=== PATIENT | male | born 2000 | race Caucasian/White ===

== ENCOUNTER 2022-01-18 13:45 | Emergency (ER) | payer MEDICAID ==
[~2022-01-18] VITALS: Ht 185.4 cm; Wt 136.1 kg
[2022-01-18 13:53] VITALS: BP 178/96
== END 2022-01-18 14:54 | disposition home or self-care (01) ==
LOC: EDH 13:45
DX: I10 Essential (primary) hypertension (principal); F84.0 Autistic disorder

== ENCOUNTER 2023-08-26 20:24 | Emergency (ER) | payer MEDICAID ==
[~2023-08-26] VITALS: Ht 185.4 cm; Wt 114.4 kg
[2023-08-26] MEDS ORDERED: MAG/ALUM/SIMETH 30 ML UDCUP PO ONE (23:30)
[2023-08-26] MEDS ORDERED: LIDOCAINE HCL 2% VISCOUS 15 ML UDCUP PO ONE (23:30)
[2023-08-26 23:36] LABS: HEMATOCRIT 49.7 % (42-54); MEAN CORPUSCULAR HEMOGLOBIN 30.4 pg (27.0-33.0); MEAN CORPUSCULAR HGB CONC 33.4 g/dL (32.0-36.0); PLATELET COUNT (AUTO) 320 K/uL (130-400); RED BLOOD CELL COUNT(AUTO) 5.46 MIL/uL (4.50-6.20); RED CELL DISTRIBUTION WIDTH 12.2 % (11.0-15.5); WHITE BLOOD COUNT (AUTO) 14.8 K/uL (4.8-10.8)
[2023-08-26 23:47] LABS: POTASSIUM 4.1 mmol/L (3.5-5.1)
[2023-08-26 23:48] LABS: BASOPHILS # (AUTO) 0.06 K/uL (0.00-0.20); BASOPHILS % (AUTO) 0.4 % (0.0-5.0); EOSINOPHILS # (AUTO) 0.04 K/uL (0.00-0.70); EOSINOPHILS % (AUTO) 0.3 % (0.0-8.0); IMMATURE GRANULOCYTE ABSOLUTE 0.06 K/uL (0-1); INR 0.96 (0.85-1.15); LYMPHOCYTES # (AUTO) 1.7 K/uL (1.0-4.8); LYMPHOCYTES % (AUTO) 11.6 % (21.0-51.0); MONOCYTES # (AUTO) 0.9 K/uL (0.1-1.0); MONOCYTES % (AUTO) 5.8 % (3.0-13.0); NEUTROPHILS # (AUTO) 11.8 K/uL (1.8-7.7); NEUTROPHILS % (AUTO) 81.5 % (40.0-77.0); PROTHROMBIN TIME 11.2 SEC (9.6-11.6)
[2023-08-26 23:49] LABS: PARTIAL THROMBOPLASTIN TIME 29.2 SEC (26.3-35.5)
[2023-08-26 23:52] LABS: ALBUMIN 4.1 g/dL (3.5-5.0); BILIRUBIN,TOTAL 0.8 mg/dL (0.2-1.0); TOTAL PROTEIN, SERUM 8.3 g/dL (6.0-8.3)
[2023-08-27 00:20] LABS: B-TYPE NATRIURETIC PEPTIDE < 5 pg/mL (0-100)
[2023-08-27 00:56] VITALS: BP 118/64; PULSE 78; RESP 18; O2SAT 98
[2023-08-27] MEDS ORDERED: OMEP40CA21 PO (00:56)
[2023-08-27] MEDS ORDERED: IBUP-1493 PO (00:56)
[2023-08-27 00:57] LABS: ERYTHROCYTE SEDIMENTATION RATE 7 MM/HR (0-15)
== END 2023-08-27 01:14 | disposition home or self-care (01) ==
LOC: EDH 20:24
DX: B17.9 Acute viral hepatitis, unspecified (principal); I30.9 Acute pericarditis, unspecified; R07.89 Other chest pain; F84.0 Autistic disorder
CPT/HCPCS: 36415; 71045; 80053; 83880; 84484; 85025; 85378; 85610; 85651; 85730; 93005

== ENCOUNTER 2024-01-15 11:44 | Emergency (ER) | payer MEDICAID ==
[~2024-01-15] VITALS: Ht 188 cm; Wt 106.3 kg
[~2024-01-15 11:44] MED LIST: IBUP-1493 PO; OMEP40CA21 PO
[2024-01-15] MEDS: DICYCLOMINE HCL 10 MG/5 ML ML PO ONE (12:19)
[2024-01-15] MEDS: 0.9%NACL 1000ML 1,000 ML IV ONE (12:19)
[2024-01-15] MEDS: FAMOTIDINE 20MG VIAL IV ONE (12:19)
[2024-01-15] MEDS: METOCLOPRAMIDE 10 MG/2 ML VIAL IVP ONE (12:19)
[2024-01-15] MEDS: LIDOCAINE HCL 2% VISCOUS 15 ML UDCUP PO ONE (12:19)
[2024-01-15] MEDS: MAG/ALUM/SIMETH 30 ML UDCUP PO ONE (12:19)
[2024-01-15] MEDS: MORPHINE 2 MG SYG IVP ONE (12:20)
[2024-01-15 12:29] LABS: BASOPHILS # (AUTO) 0.06 K/uL (0.00-0.20); BASOPHILS % (AUTO) 0.7 % (0.0-5.0); EOSINOPHILS % (AUTO) 3.4 % (0.0-8.0); HEMATOCRIT 45.8 % (42-54); IMMATURE GRANULOCYTE ABSOLUTE 0.05 K/uL (0-1); LYMPHOCYTES % (AUTO) 23.2 % (21.0-51.0); MEAN CORPUSCULAR HEMOGLOBIN 30.3 pg (27.0-33.0); MEAN CORPUSCULAR HGB CONC 34.3 g/dL (32.0-36.0); MEAN CORPUSCULAR VOLUME 88.4 fL (80-100); MONOCYTES # (AUTO) 0.8 K/uL (0.1-1.0); MONOCYTES % (AUTO) 9.4 % (3.0-13.0); NEUTROPHILS # (AUTO) 5.5 K/uL (1.8-7.7); NEUTROPHILS % (AUTO) 62.7 % (40.0-77.0); PLATELET COUNT (AUTO) 334 K/uL (130-400); RED BLOOD CELL COUNT(AUTO) 5.18 MIL/uL (4.50-6.20); RED CELL DISTRIBUTION WIDTH 12.4 % (11.0-15.5); WHITE BLOOD COUNT (AUTO) 8.7 K/uL (4.8-10.8)
[2024-01-15 12:38] LABS: CREATININE 0.9 mg/dL (0.5-1.3); POTASSIUM 4.5 mmol/L (3.5-5.1)
[2024-01-15 12:42] LABS: BILIRUBIN,TOTAL 2.1 mg/dL (0.2-1.0); TOTAL PROTEIN, SERUM 7.9 g/dL (6.0-8.3)
[2024-01-15 13:45] LABS: APPEARANCE,URINE CLEAR (CLEAR); BILIRUBIN,URINE NEGATIVE (NEGATIVE); COLOR,URINE YELLOW (YELLOW); GLUCOSE, URINE (UA) NEGATIVE (NEGATIVE); KETONES,URINE NEGATIVE (NEGATIVE); LEUKOCYTE ESTERASE ,URINE NEGATIVE Leu/uL (NEGATIVE); NITRATE,URINE NEGATIVE (NEGATIVE); OCCULT BLOOD,URINE NEGATIVE (NEGATIVE); PH,URINE 6.5 (5.0-8.0); PROTEIN,URINE NEGATIVE (NEGATIVE); UROBILINOGEN,URINE 0.2 mg/dL (0.2-1.0)
[2024-01-15 14:12] LABS: ADD UA MICROSCOPIC NO
[2024-01-15 15:10] VITALS: BP 110/68; PULSE 64; RESP 17; O2SAT 98
== END 2024-01-15 15:22 | disposition home or self-care (01) ==
LOC: EDH 11:44
DX: K29.70 Gastritis, unspecified, without bleeding (principal); K76.0 Fatty (change of) liver, not elsewhere classified; F84.0 Autistic disorder; Z79.899 Other long term (current) drug therapy; Z98.890 Other specified postprocedural states
CPT/HCPCS: 99284; 96374; 96375; 96361; 82150; 84484; 80053; 83690; 85025; 81003; 36415; 93005; J2270; J7030; J2765; S0028; J3490

== ENCOUNTER 2024-02-06 10:17 | Emergency (ER) | payer MEDICAID ==
[~2024-02-06] VITALS: Ht 185.4 cm; Wt 108.9 kg
[2024-02-06 11:02] LABS: BASOPHILS # (AUTO) 0.04 K/uL (0.00-0.20); BASOPHILS % (AUTO) 0.4 % (0.0-5.0); EOSINOPHILS # (AUTO) 0.34 K/uL (0.00-0.70); HEMATOCRIT 46.7 % (42-54); IMMATURE GRANULOCYTE ABSOLUTE 0.04 K/uL (0-1); LYMPHOCYTES # (AUTO) 3.2 K/uL (1.0-4.8); LYMPHOCYTES % (AUTO) 28.6 % (21.0-51.0); MEAN CORPUSCULAR HEMOGLOBIN 30.3 pg (27.0-33.0); MEAN CORPUSCULAR HGB CONC 33.6 g/dL (32.0-36.0); MEAN CORPUSCULAR VOLUME 90.2 fL (80-100); MONOCYTES # (AUTO) 0.8 K/uL (0.1-1.0); MONOCYTES % (AUTO) 7.5 % (3.0-13.0); NEUTROPHILS # (AUTO) 6.7 K/uL (1.8-7.7); NEUTROPHILS % (AUTO) 60.1 % (40.0-77.0); PLATELET COUNT (AUTO) 365 K/uL (130-400); RED BLOOD CELL COUNT(AUTO) 5.18 MIL/uL (4.50-6.20); RED CELL DISTRIBUTION WIDTH 12.2 % (11.0-15.5); WHITE BLOOD COUNT (AUTO) 11.2 K/uL (4.8-10.8)
[2024-02-06 11:11] LABS: APPEARANCE,URINE CLEAR (CLEAR); BILIRUBIN,URINE NEGATIVE (NEGATIVE); COLOR,URINE YELLOW (YELLOW); GLUCOSE, URINE (UA) NEGATIVE (NEGATIVE); KETONES,URINE NEGATIVE (NEGATIVE); LEUKOCYTE ESTERASE ,URINE NEGATIVE Leu/uL (NEGATIVE); NITRATE,URINE NEGATIVE (NEGATIVE); OCCULT BLOOD,URINE NEGATIVE (NEGATIVE); PH,URINE 6.5 (5.0-8.0); PROTEIN,URINE 20 mg/dL (NEGATIVE)
[2024-02-06 11:12] LABS: ADD UA MICROSCOPIC YES
[2024-02-06 11:17] LABS: BILIRUBIN,TOTAL 0.6 mg/dL (0.2-1.0); TOTAL PROTEIN, SERUM 8.3 g/dL (6.0-8.3)
[2024-02-06 11:18] LABS: BACTERIA,URINE RARE /HPF (None Seen); MUCUS,URINE FEW LPF (None Seen); SQUAMOUS EPITHELIAL CELL,UR RARE /HPF (0-2); WBC,URINE 0-1 /HPF (0-1)
[2024-02-06] MEDS: 0.9%NACL 1000ML 1,000 ML IV ONE (12:24)
[2024-02-06 13:08] VITALS: BP 115/47; PULSE 65; RESP 17; O2SAT 99
== END 2024-02-06 13:48 | disposition home or self-care (01) ==
LOC: EDH 10:17
DX: I95.9 Hypotension, unspecified (principal); F84.0 Autistic disorder; I21.9 Acute myocardial infarction, unspecified; Z79.899 Other long term (current) drug therapy; Z87.19 Personal history of other diseases of the digestive system
CPT/HCPCS: 99284; 96360; 84484 ×2; 80053; 85025; 81001; 36415; 93005 ×3; J7030; 96365

== ENCOUNTER 2024-06-23 04:23 | Inpatient (IN) | payer MEDICAID ==
[~2024-06-23] VITALS: Ht 188 cm; Wt 103.2 kg
[2024-06-23] MEDS: FAMOTIDINE 20MG VIAL IV ONE (04:43)
[2024-06-23] MEDS: ONDANSETRON 4MG INJ IVP ONE (04:43)
[2024-06-23 05:06] LABS: BASOPHILS # (AUTO) 0.05 K/uL (0.00-0.20); BASOPHILS % (AUTO) 0.3 % (0.0-5.0); EOSINOPHILS # (AUTO) 0.03 K/uL (0.00-0.70); EOSINOPHILS % (AUTO) 0.2 % (0.0-8.0); IMMATURE GRANULOCYTE ABSOLUTE 0.07 K/uL (0-1); LYMPHOCYTES # (AUTO) 1.3 K/uL (1.0-4.8); LYMPHOCYTES % (AUTO) 7.8 % (21.0-51.0); MEAN CORPUSCULAR HGB CONC 34.1 g/dL (32.0-36.0); MEAN CORPUSCULAR VOLUME 91.1 fL (80-100); MONOCYTES # (AUTO) 0.8 K/uL (0.1-1.0); MONOCYTES % (AUTO) 4.8 % (3.0-13.0); NEUTROPHILS % (AUTO) 86.5 % (40.0-77.0); PLATELET COUNT (AUTO) 314 K/uL (130-400); RED BLOOD CELL COUNT(AUTO) 5.38 MIL/uL (4.50-6.20); RED CELL DISTRIBUTION WIDTH 11.9 % (11.0-15.5); WHITE BLOOD COUNT (AUTO) 16.2 K/uL (4.8-10.8)
[2024-06-23 05:11] LABS: POTASSIUM 4.5 mmol/L (3.5-5.1)
[2024-06-23 05:16] LABS: ALBUMIN 4.5 g/dL (3.5-5.0); BILIRUBIN,TOTAL 2.3 mg/dL (0.2-1.0); TOTAL PROTEIN, SERUM 8.4 g/dL (6.0-8.3)
[2024-06-23 07:52] LABS: APPEARANCE,URINE CLEAR (CLEAR); BILIRUBIN,URINE 0.5 mg/dL (NEGATIVE); COLOR,URINE YELLOW (YELLOW); GLUCOSE, URINE (UA) NEGATIVE (NEGATIVE); KETONES,URINE 40 mg/dL (NEGATIVE); LEUKOCYTE ESTERASE ,URINE NEGATIVE Leu/uL (NEGATIVE); NITRATE,URINE NEGATIVE (NEGATIVE); OCCULT BLOOD,URINE NEGATIVE (NEGATIVE); PH,URINE 6.5 (5.0-8.0); PROTEIN,URINE 30 mg/dL (NEGATIVE); UROBILINOGEN,URINE 6 mg/dL (0.2-1.0)
[2024-06-23] MEDS ORDERED: KETOROLAC 30MG VIAL (30MG/ML) IVP ONE (08:00)
[2024-06-23 08:26] LABS: ADD UA MICROSCOPIC YES
[2024-06-23 08:28] LABS: BACTERIA,URINE RARE /HPF (None Seen); MUCUS,URINE FEW LPF (None Seen); SQUAMOUS EPITHELIAL CELL,UR RARE /HPF (0-2)
[2024-06-23] MEDS ORDERED: ONDANSETRON 4MG INJ IV PRN (10:00)
[2024-06-23] MEDS ORDERED: KETOROLAC 30MG VIAL (30MG/ML) IM PRN (10:00)
[2024-06-23] MEDS ORDERED: acetaMINOPHEN 325 MG TAB PO PRN ×2 (10:00)
[2024-06-23] MEDS: 0.9%NACL 1000ML 1,000 ML IV SCH (10:38)
[2024-06-23] MEDS: ONDANSETRON 4MG INJ IV ONE (10:38)
[2024-06-23] MEDS: FENTanyl CITRate PF 50 MCG/1 ML 2ML VIAL IVP ONE (10:39)
[2024-06-23] MEDS ORDERED: [UNRECOGNIZED DRUG - CODE] PO ×2 (10:50→10:54)
[2024-06-23] MEDS ORDERED: LISI10TA24 PO (10:50)
[2024-06-23] MEDS ORDERED: CLON1PAT13 TD (10:50)
[2024-06-23] MEDS ORDERED: CLON1PAT12 TD (10:50)
[2024-06-23 12:00] VITALS: BP 166/79; PULSE 50; RESP 18; O2SAT 100
[2024-06-23] MEDS: ZOSYN 3.375GM+NS 50ML 50 ML IV SCH (13:02)
[2024-06-23] MEDS ORDERED: CLON0.2T PO (13:15)
[2024-06-23] MEDS ORDERED: CLON0.1T PO (13:15)
[2024-06-23] MEDS ORDERED: FAMOTIDINE 20MG TAB PO PRN (13:30)
[2024-06-23] MEDS: LISINOPRIL 10 MG TABLET PO ONE (13:33)
[2024-06-23] MEDS: cloNIDine HCL 0.1 MG TABLET PO ONE (13:34)
[2024-06-23 16:00] VITALS: BP 119/57; PULSE 44; RESP 18
[2024-06-23 20:00] VITALS: BP 122/72; PULSE 51; RESP 20
[2024-06-23] MEDS: LISINOPRIL 10 MG TABLET PO SCH (20:38)
[2024-06-23] MEDS: cloNIDine HCL 0.2 MG TABLET PO SCH (20:38)
[2024-06-23] MEDS: FAMOTIDINE 20MG VIAL IV SCH (20:39)
[2024-06-24] VITALS (10 sets, daily range): BP systolic 101–146; BP diastolic 49–78; PULSE 40–58; RESP 16–20; O2SAT 99–100
[2024-06-24 04:36] LABS: BASOPHILS # (AUTO) 0.05 K/uL (0.00-0.20); BASOPHILS % (AUTO) 0.7 % (0.0-5.0); EOSINOPHILS # (AUTO) 0.21 K/uL (0.00-0.70); EOSINOPHILS % (AUTO) 2.9 % (0.0-8.0); HEMATOCRIT 45.5 % (42-54); IMMATURE GRANULOCYTE ABSOLUTE 0.02 K/uL (0-1); LYMPHOCYTES # (AUTO) 2.2 K/uL (1.0-4.8); LYMPHOCYTES % (AUTO) 31.4 % (21.0-51.0); MEAN CORPUSCULAR HEMOGLOBIN 30.8 pg (27.0-33.0); MEAN CORPUSCULAR HGB CONC 32.5 g/dL (32.0-36.0); MEAN CORPUSCULAR VOLUME 94.6 fL (80-100); MONOCYTES # (AUTO) 0.7 K/uL (0.1-1.0); MONOCYTES % (AUTO) 9.8 % (3.0-13.0); NEUTROPHILS # (AUTO) 3.9 K/uL (1.8-7.7); NEUTROPHILS % (AUTO) 54.9 % (40.0-77.0); PLATELET COUNT (AUTO) 246 K/uL (130-400); RED BLOOD CELL COUNT(AUTO) 4.81 MIL/uL (4.50-6.20); RED CELL DISTRIBUTION WIDTH 12.4 % (11.0-15.5); WHITE BLOOD COUNT (AUTO) 7.1 K/uL (4.8-10.8)
[2024-06-24 04:49] LABS: ALBUMIN 3.7 g/dL (3.5-5.0); BILIRUBIN,TOTAL 1.9 mg/dL (0.2-1.0); CREATININE 1.1 mg/dL (0.5-1.3); POTASSIUM 4.4 mmol/L (3.5-5.1)
[2024-06-24] MEDS: ALPRAZolam 1 MG TAB PO ONE (08:16)
[2024-06-24] MEDS: cloNIDine HCL 0.1 MG TABLET PO SCH (08:22)
[2024-06-24] MEDS ORDERED: CLONIDINE 0.1 MG/24 HR TD SCH (09:00)
[2024-06-25] VITALS (21 sets, daily range): BP systolic 103–160; BP diastolic 32–94; PULSE 38–72; RESP 16–22; O2SAT 97–100
[2024-06-25] MEDS: INDOMETHACIN 100 MG SUPP.RECT RC ONE (06:30)
[2024-06-25 08:28] LABS: BASOPHILS # (AUTO) 0.06 K/uL (0.00-0.20); BASOPHILS % (AUTO) 0.8 % (0.0-5.0); EOSINOPHILS # (AUTO) 0.31 K/uL (0.00-0.70); EOSINOPHILS % (AUTO) 4.2 % (0.0-8.0); HEMATOCRIT 45.8 % (42-54); IMMATURE GRANULOCYTE ABSOLUTE 0.03 K/uL (0-1); LYMPHOCYTES # (AUTO) 2.1 K/uL (1.0-4.8); LYMPHOCYTES % (AUTO) 28.7 % (21.0-51.0); MEAN CORPUSCULAR HEMOGLOBIN 31.1 pg (27.0-33.0); MEAN CORPUSCULAR HGB CONC 33.2 g/dL (32.0-36.0); MEAN CORPUSCULAR VOLUME 93.9 fL (80-100); MONOCYTES # (AUTO) 0.6 K/uL (0.1-1.0); MONOCYTES % (AUTO) 8.3 % (3.0-13.0); NEUTROPHILS # (AUTO) 4.2 K/uL (1.8-7.7); NEUTROPHILS % (AUTO) 57.6 % (40.0-77.0); PLATELET COUNT (AUTO) 231 K/uL (130-400); RED BLOOD CELL COUNT(AUTO) 4.88 MIL/uL (4.50-6.20); RED CELL DISTRIBUTION WIDTH 12.2 % (11.0-15.5); WHITE BLOOD COUNT (AUTO) 7.4 K/uL (4.8-10.8)
[2024-06-25 08:44] LABS: ALBUMIN 3.7 g/dL (3.5-5.0); BILIRUBIN,TOTAL 1.4 mg/dL (0.2-1.0); CREATININE 1.1 mg/dL (0.5-1.3); POTASSIUM 4.1 mmol/L (3.5-5.1); TOTAL PROTEIN, SERUM 7.2 g/dL (6.0-8.3)
[2024-06-25] MEDS ORDERED: proPOFol 10 MG/ML 20ML VIAL IV ONE (13:40)
[2024-06-25] MEDS ORDERED: rocuRONium bROMide 10MG/1ML 5ML VL ONE (13:41)
[2024-06-25] MEDS ORDERED: PHENYLEPHRINE HCL 10 MG/ML 1ML VIAL IV ONE (13:41)
[2024-06-25] MEDS ORDERED: SUCCINYLCHOLINE CHLORIDE 20 MG/ML 10 ML VIAL ONE (13:41)
[2024-06-25] MEDS ORDERED: NEOSTIGMINE METHYLSULFATE 1MG/ML IV ONE (13:41)
[2024-06-25] MEDS ORDERED: GLYCOPYRROLATE 0.2 MG/ML 5 ML VIAL ONE (13:41)
[2024-06-25] MEDS ORDERED: FENTanyl CITRate PF 50 MCG/1 ML 2ML VIAL ONE (13:42)
[2024-06-25] MEDS ORDERED: MIDAZOLAM HCL 1 MG/ML 2ML VIAL ONE (13:43)
[2024-06-25] MEDS ORDERED: LIDOCAINE PF 100MG/5ML (2%) SYRINGE 5ML ONE (13:50)
[2024-06-25] MEDS ORDERED: IOHEXOL-350 50ML VIAL IV ONE (15:11)
[2024-06-26] VITALS (26 sets, daily range): BP systolic 115–161; BP diastolic 57–104; PULSE 47–66; RESP 15–20
[2024-06-26] MEDS: BUPIvacaine HCL/EPINEPHrine/PF 0.25% 10ML VIAL IJ ONE
[2024-06-26 06:39] LABS: BASOPHILS # (AUTO) 0.04 K/uL (0.00-0.20); BASOPHILS % (AUTO) 0.6 % (0.0-5.0); EOSINOPHILS # (AUTO) 0.25 K/uL (0.00-0.70); EOSINOPHILS % (AUTO) 3.5 % (0.0-8.0); HEMATOCRIT 42.9 % (42-54); IMMATURE GRANULOCYTE ABSOLUTE 0.03 K/uL (0-1); LYMPHOCYTES # (AUTO) 1.9 K/uL (1.0-4.8); LYMPHOCYTES % (AUTO) 26.5 % (21.0-51.0); MEAN CORPUSCULAR HEMOGLOBIN 31.3 pg (27.0-33.0); MEAN CORPUSCULAR VOLUME 92.1 fL (80-100); MONOCYTES # (AUTO) 0.7 K/uL (0.1-1.0); MONOCYTES % (AUTO) 9.5 % (3.0-13.0); NEUTROPHILS # (AUTO) 4.3 K/uL (1.8-7.7); NEUTROPHILS % (AUTO) 59.5 % (40.0-77.0); PLATELET COUNT (AUTO) 226 K/uL (130-400); RED BLOOD CELL COUNT(AUTO) 4.66 MIL/uL (4.50-6.20); RED CELL DISTRIBUTION WIDTH 11.9 % (11.0-15.5); WHITE BLOOD COUNT (AUTO) 7.2 K/uL (4.8-10.8)
[2024-06-26 06:53] LABS: ALBUMIN 3.5 g/dL (3.5-5.0); BILIRUBIN,TOTAL 1.2 mg/dL (0.2-1.0); MAGNESIUM 1.7 mg/dL (1.80-2.40); POTASSIUM 3.9 mmol/L (3.5-5.1); TOTAL PROTEIN, SERUM 6.9 g/dL (6.0-8.3)
[2024-06-26] MEDS: acetaMINOPHEN 1,000 MG/100 ML VIAL IV ONE (11:33)
[2024-06-26] MEDS: FAMOTIDINE 20MG VIAL IV ONE (11:33)
[2024-06-26] MEDS ORDERED: rocuRONium bROMide 10MG/1ML 5ML VL ONE (11:38)
[2024-06-26] MEDS ORDERED: proPOFol 10 MG/ML 20ML VIAL IV ONE (11:38)
[2024-06-26] MEDS ORDERED: FENTanyl CITRate PF 50 MCG/1 ML 2ML VIAL ONE ×2 (11:39→15:35)
[2024-06-26] MEDS: LACTATED RINGERS 1000ML 1,000 ML IV ONE ×2 (12:02)
[2024-06-26] MEDS ORDERED: MIDAZOLAM HCL 1 MG/ML 2ML VIAL ONE (12:10)
[2024-06-26] MEDS ORDERED: KETAMINE 50MG/ML SYRINGE 50 MG/ML DISP.SYRIN ONE (13:33)
[2024-06-26] MEDS ORDERED: ONDANSETRON 4MG INJ ONE (14:25)
[2024-06-26] MEDS ORDERED: dexaMETHasone SOD PHOSPHATE 10MG/ML 1ML VIAL ONE (14:25)
[2024-06-26] MEDS ORDERED: NEOSTIGMINE METHYLSULFATE 1MG/ML IV ONE (15:02)
[2024-06-26] MEDS ORDERED: GLYCOPYRROLATE 0.2 MG/ML 5 ML VIAL ONE (15:02)
[2024-06-26] MEDS ORDERED: KETOROLAC 30MG VIAL (30MG/ML) ONE (15:30)
[2024-06-26] MEDS: MORPHINE 2 MG SYG IV PRN (17:37)
[2024-06-26] MEDS: SIMETHICONE 80 MG TAB.CHEW PO SCH (17:42)
[2024-06-26] MEDS: traMADol HCL 50 MG TABLET PO PRN (23:52)
[2024-06-27] VITALS: BP 177/96; PULSE 57; RESP 20
[2024-06-27 04:00] VITALS: BP 129/71; PULSE 51; RESP 20
[2024-06-27 08:00] VITALS: BP 167/91; PULSE 54; RESP 18
[2024-06-27 08:15] VITALS: O2SAT 99
[2024-06-27 09:46] LABS: HEMATOCRIT 38.4 % (42-54); MEAN CORPUSCULAR HEMOGLOBIN 31.1 pg (27.0-33.0); MEAN CORPUSCULAR HGB CONC 34.4 g/dL (32.0-36.0); MEAN CORPUSCULAR VOLUME 90.6 fL (80-100); RED BLOOD CELL COUNT(AUTO) 4.24 MIL/uL (4.50-6.20); RED CELL DISTRIBUTION WIDTH 11.9 % (11.0-15.5); WHITE BLOOD COUNT (AUTO) 14.8 K/uL (4.8-10.8)
[2024-06-27 10:01] LABS: ALBUMIN 3.5 g/dL (3.5-5.0); BILIRUBIN,TOTAL 0.7 mg/dL (0.2-1.0); CREATININE 0.9 mg/dL (0.5-1.3); TOTAL PROTEIN, SERUM 6.9 g/dL (6.0-8.3)
[2024-06-27 12:00] VITALS: BP 138/84; PULSE 58; RESP 18
[2024-06-27] MEDS ORDERED: AMOX1TAB16 PO (13:48)
[2024-06-27 16:00] VITALS: BP 139/69; PULSE 61; RESP 18
== END 2024-06-27 15:35 | disposition home or self-care (01) | DRG 263 ==
LOC: EDH 04:23 → EDHIP 04:24 → UNDOADMIN 09:46 → EDHIP 11:27 → 3CH 11:27
PROVIDERS: ADMIT Hospitalist; ATTEND Hospitalist
PROC: 0F798ZZ Dilation of Common Bile Duct, Via Natural or Artificial Opening Endoscopic (ICD-10-PCS; 2024-06-25)
PROC: 0FT44ZZ Resection of Gallbladder, Percutaneous Endoscopic Approach (ICD-10-PCS; principal; 2024-06-26 12:35)
DX: K80.62 Calculus of gallbladder and bile duct with acute cholecystitis without obstruction (principal); F84.0 Autistic disorder; I16.0 Hypertensive urgency; R74.01 Elevation of levels of liver transaminase levels; I10 Essential (primary) hypertension; K21.9 Gastro-esophageal reflux disease without esophagitis; Z82.49 Family history of ischemic heart disease and other diseases of the circulatory system
CPT/HCPCS: 36415; 43262; 74176; 74181; 74328; 74330; 76705; 80053; 81001; 82248; 83690; 83735; 85025; 85027; 85651; 88304; A4606; C1769; C1773; G0378; J0330; J1100; J1885; J2001; J2250; J2270; J2371; J2405; J2543; J2704; J2710; J3010; J3490; J7030; J7120; Q9967; A4215; A4216; A4221; A4222; A4223; A4600; A4649; A4663; A4930; A7002; G0168; S8037

== ENCOUNTER 2025-01-20 10:21 | Emergency (ER) | payer MEDICAID ==
[~2025-01-20] VITALS: Ht 185.4 cm; Wt 100.7 kg
[~2025-01-20 10:21] MED LIST changes: +AMOX1TAB16 PO; +CLON0.1T PO; +CLON0.2T PO; -IBUP-1493 PO; +LISI10TA24 PO; -OMEP40CA21 PO; +[UNRECOGNIZED DRUG - CODE] PO
--- NOTE | 2025-01-20 10:47 | ERN ---
General Chief Complaint: Foreign Body Stated Complaint: LEFT FOOT, POSSIBLE GLASS Time Seen by MD: 10:22 History of Present Illness Initial Comments 24M, hx autism, presents for left foot pain. A few days ago he stepped on something ceramic according to the family. He has been having pain since. He was autism, he was able to communicate. He has been reporting pain. No systemic illness. Allergies: Coded Allergies: No Known Drug Allergies (Unverified Allergy, Unknown, 01/18/22) Home Meds Active Scripts Amoxicillin/Potassium Clav (Amox Tr-K Clv 875-125 mg Tab) 875 Mg-125 Mg Tablet, 1 EACH PO BID for 7 Days, #14 TAB Prov:SEEMA PELAYO 06/27/24 Reported Medications Clonidine HCl (Clonidine HCl) 0.2 Mg Tablet, 0.2 MG PO HS, TAB 06/23/24 Clonidine HCl (Clonidine HCl) 0.1 Mg Tablet, 0.1 MG PO DAILY, TAB 06/23/24 Famotidine (Zantac-360 (Famotidine)) 20 Mg Tablet, 20 MG PO DAILY PRN for ABDOMINAL PAIN, TAB 06/23/24 Lisinopril (Lisinopril) 10 Mg Tablet, 10 MG PO BID, TAB 06/23/24 Past Medical History Past Medical History: Hypertension, Other Medical History Other: AUTISM, GASTRITIS , PREMATURE , INSOMNIA Past Surgical History: Cholecystectomy Family History Family History: HTN Social History Social History: Lives with family ROS Dictation CONSTITUTIONAL: No chills, no fever, no weakness, no diaphoresis, no malaise. HEAD/FACE: No signs of trauma. EENT: No eye pain, no blurred vision, no tearing, no double vision, no ear pain, no ear discharge, no nose pain, no nasal congestion, no throat pain, no throat swelling, no mouth pain. RESPIRATORY: No cough, no orthopnea, no SOB, no stridor, no wheezing. CARDIOVASCULAR: No chest pain, no edema, no palpitations, no syncope. GASTROINTESTINAL/ABDOMINAL: No abdominal pain, no constipation, no diarrhea, no nausea, no vomiting. GENITOURINARY: No abnormal discharge, no dysuria, no frequent urination, no h ematuria. No complaints of pain in the genitals. MUSCULOSKELETAL: Left foot pain INTEGUMENTARY: No change in color, no change in hair/nails, no dryness, no lesion, no lumps, no rash. NEUROLOGICAL/PSYCH: No anxiety, not depressed, no emotional problem, no headache, no numbness, no pre-existing deficit, no history of seizures, no tremors, no weakness. HEMATOLOGIC/LYMPHATIC: Not anemic, no history of blood clots, no apparent bleeding, no bruising, glands not swollen. All Systems Negative, Except as Noted. Physical Exam Physical Exam Dictation VITAL SIGNS: Reviewed. GENERAL APPEARANCE: Alert, oriented x3, no acute distress, obese. HEAD AND FACE: Non-traumatic. EYES: PERRL, pink conjunctivas, eyelid no trauma, anterior chamber clear. EARS: Pinnas intact and no signs of trauma or erythema. Ear canals clear and no discharge. TMs no erythema. NOSE: No discharge, no bleeding. OROPHARYNX: Mouth normal, teeth no caries, tongue pink. Pharynx clear, no erythema. Tonsils no exudates, no abscesses noted. Mucous membrane moist. NECK: Supple, non-tender, no thyromegaly, no masses, no JVD, no bruits. BREAST: Deferred. CHEST: No tenderness, no crepitus, no paradoxical movement, no retractions. LUNGS: Clear, well-ventilated, symmetric, no rales, no wheezing, no rhonchi, no stridor, good breath sounds bilaterally. HEART: Regular rate, regular rhythm, no murmur, no gallops. VASCULAR: No peripheral edema. ABDOMEN: Soft, positive bowel sounds, nondistended, no guarding, nontender, no rebound, no masses no hepatomegaly, no splenomegaly, no Miner's sign, no hernias. RECTAL: Deferred. GENITAL: Deferred. NEUROLOGICAL: Normal speech, gross motor function intact, gross sensory function intact. MUSCULOSKELETAL: laceration/pain to bottom of foot. EXTREMITIES: Nontender, full range of motion. SKIN: Color pink, dry, no turgor, no rash, no lacerations, no abrasions, no contusions. LYMPHATICS: Deferred. [facility] CC: Possible foreign body in the left foot Historian: Mother and patient. Patient has autism, poor communicator. Mother did provide much of the history. Limitations by social determinants of health: None Differential diagnosis: Foreign body in the left foot Vital signs are stable Patient was neurovascularly intact. There is a small area tenderness and a possible foreign body Foot x-ray (independently interpreted by me): There is a small foreign body appears to be glass or ceramic lateral side foot or the patient is. I discussion with the family. Since the patient is autistic, we will be difficult for local anesthesia. We discussed conscious sedation, the family agrees. Patient was given p.o. Versed with good effect. Procedural sedation performed with ketamine. Good results. Foreign body was removed by Michael nurse practitioner. No complications. Foreign body was immediately removed. I performed the conscious sedation. Patient was monitored for about 45 minutes. He returned to baseline. No complications. We will DC with PCP follow up as needed. ED Course Orders Procedure Category Date Status Time Foot Comp 3+Vws Lt RAD 01/20/25 Resulted 10:27 Midazolam Hcl (Versed PHA 01/20/25 Complete Syrup) 11:30 Ketamine 50mg/Ml PHA 01/20/25 Complete Syringe (Ketamine 11:30 Lidocaine Hcl 1% 20ml PHA 01/20/25 Complete Vial (Lidocaine Hc 12:21 Current Medications Medications (Trade) Dose Ordered Sig/Nancy Route PRN Reason Start Time Stop Time Status Last Admin Dose Admin Ketamine HCl (ketaMINE 50MG/ ML SYRINGE) 100 mg ONCE ONCE IM 01/20/25 11:30 01/20/25 11:31 DC 01/20/25 12:39 Lidocaine HCl (Lidocaine HCl 1% 20ml Vial) 20 ml STK-MED ONCE .ROUTE 01/20/25 12:21 01/20/25 12:22 DC Midazolam HCl (Versed Syrup) 10 mg ONCE ONCE PO 01/20/25 11:30 01/20/25 11:31 DC 01/20/25 11:49 Vital Signs Date Time Temp Pulse Resp B/P (MAP) Pulse Ox O2 Delivery O2 Flow Rate FiO2 01/20/25 13:39 98.4 70 17 137/95 98 Room Air* 0 21 01/20/25 12:39 98.4 67 16 139/82 98 Nasal Cannula* 2 28 01/20/25 10:22 98.4 57 16 135/88 99 Room Air 0 Procedure Dictation 1230/PATIENT GIVEN KETAMINE IV PUSH BY /WALTER BESSHAND CARVER NURSE. LEFT LATERAL FOOT WAS PREPPED STERILELY WITH BETADINE SWAB 1 ML 1% LIDOCAINE PLAIN PLACE LOCALLY 15. BLADE USED TO PUNCTURE PROXIMAL FOREIGN BODY FOREIGN BODY REMOVED INTACT NO SUTURE REQUIRED PATIENT TOLERATED WELL NO ACTIVE BLEEDING IN BAND-AID WAS APPLIED PROCEDURE NOTE: Procedural Sedation Performed by: Keo NEWSOME Indications: FB removal of foot Marcell Protocol: a time out was performed and the correct patient and site were verified Consent: The risks and benefits of monitored anesthesia care, including the risk of aspiration, deep sedation requiring airway management including possible intubation, nausea/vomiting and the risks of not performing the procedure, including severe pain and inability to complete the procedure, were all discussed with the patient's mother and father. The alternatives of performing the procedure, including local anesthesia and IV analgesia, also discussed. The patient has a ride home available. ASA Class:I Mallampati Score: 2 Pre-anesthesia evaluation, including history, exam, and informed consent is documented in the note above. Monitoring: Continuous monitoring of heart rate, respiratory rate, pulse oximetry and ETCO2. Supplemental oxygen prior to and during procedure via nasal cannula. Resuscitation equipment available at the bedside during sedation. The patient received ketamine and dosages were recorded on the sedation form. The patient was recovered from the sedation without complication or incident. Patient returned to pre-sedation level of awareness. The monitoring was discontinued at this time. Post-anesthesia evaluation: VSS, returned to baseline mentation. PO tolerant, ambulatory Respiratory function, cardiovascular function, temperature, and mental status did return to pre-anesthetic state. Total time 15 minutes. DX & DISP Disposition: Discharge Departure Impression: Primary Impression: Foreign body in left foot Condition: Stable Additional Instructions: Sunny had a small foreign body in his left foot. It was removed here in the ER. She received ketamine and Versed for sedation. He may have a headache or some nausea later today. This is normal. He can take [id number] Tylenol as needed. Make sure that he is drinking plenty of liquids. Keep the wound on his foot covered with a Band-Aid for the next 48 hours or so. After that cover as needed. Keep it clean with soap and water. Please return to the emergency department as needed. Referrals: Chato FERRARO MD (PCP) KEO NEWSOME DO Jan 20, 2025 10:47 MICHAEL RAMIREZ NP Jan 20, 2025 12:39
[2025-01-20] MEDS: MIDAZOLAM HCL SYRUP 10 MG/5 ML 5ML BOTTLE PO ONE (11:49)
--- NOTE | 2025-01-20 12:02 | NUR ---
ER BED 15 SET UP FOR MODERATE SEDATION.
--- NOTE | 2025-01-20 12:14 | HMCIMG ---
FOOT COMP 3+VWS LT HISTORY: Foreign body COMPARISON: None TECHNIQUE: 3 images of left foot were obtained. FINDINGS: There is no acute displaced fracture or dislocation. There is soft tissue swelling. Specific attention is given to the fifth digit. No evidence of radiopaque foreign body is seen. Nonradiopaque foreign body cannot be excluded. Degenerative changes are seen. IMPRESSION: 1. Findings as described above.
[2025-01-20] MEDS ORDERED: LIDOCAINE HCL 1% 20 ML VIAL ONE (12:21)
[2025-01-20] MEDS: ketaMINE 50MG/ML SYRINGE 50 MG/ML DISP.SYRIN IM ONE (12:39)
[2025-01-20 13:39] VITALS: BP 137/95; PULSE 70; RESP 17; TEMP 98.4; O2SAT 98
== END 2025-01-20 13:39 | disposition home or self-care (01) ==
LOC: EDH 10:21
DX: S91.342A Puncture wound with foreign body, left foot, initial encounter (principal); F84.0 Autistic disorder; I10 Essential (primary) hypertension; Z79.899 Other long term (current) drug therapy; Z90.49 Acquired absence of other specified parts of digestive tract; W22.8XXA Striking against or struck by other objects, initial encounter; Y93.89 Activity, other specified; Y92.89 Other specified places as the place of occurrence of the external cause; Y99.8 Other external cause status
CPT/HCPCS: 99285; 10120; 73630; 99152; J3490